=== PATIENT | male | born 1965 | race Caucasian/White ===

== ENCOUNTER 2021-09-10 10:51 | Emergency (ER) | payer BC, OTHER ==
[2021-09-10] MEDS ORDERED: TORAdol 30 mg Injection IM ONE (11:23)
[2021-09-10] MEDS ORDERED: Norflex 60 MG/2 ML IM ONE (11:24)
[2021-09-10] MEDS ORDERED: TORAdol 30 mg Injection ONE ×2 (11:27→11:31)
[2021-09-10] MEDS ORDERED: Norflex 60 MG/2 ML ONE (11:27)
--- NOTE | 2021-09-10 11:32 | ERPHSYRPT ---
- History of Present Illness Source: patient Patient Subjective Stated Complaint: PT states "my back started hurting a week before last but it is getting worse and worse. Now my whole right leg is numb." Triage Nursing Assessment: Pt presented alert and oriented X3, skin pwd Pt ambulates with a limp. pt unable to sit still, guards his right side. Physician History: 55 yo wm w R paraspinous pain w radiation down his R leg x 2 weeks. Pain is sharp and 10 on scale. It is worse w movement. He denies dysuria/hematuria/incontinence/paralysis/fever. Pt has not seen his PCP. Timing/Duration: other (2wks) Method of Injury: other (No injury) Quality: sharp Back Pain Location: paraspinous muscles Back Pain Radiation: buttocks, lower legs Severity of Pain-Max: severe Severity of Pain-Current: severe Modifying Factors: Improves With: movement Associated Symptoms: numbness in legs/feet, lower back pain, No fever, No chills, No sweating, No urinary incontinence, No loss of bowel control, No constipation, No nausea, No vomiting, No problems urinating, No light- headedness, No dizziness, No weakness, No sensory/motor loss, No tingling in legs/feet, No muscle spasms Previous symptoms: no prior history Allergies/Adverse Reactions: No Known Drug Allergies Allergy (Verified 09/10/21 11:26) Hx Tetanus, Diphtheria Vaccination/Date Given: Yes Hx Influenza Vaccination/Date Given: Yes Hx Pneumococcal Vaccination/Date Given: No Immunizations Up to Date: Yes Travel Risk - International Travel Have you traveled outside of the country in past 3 weeks: No - Coronavirus Screening Are you exhibiting any of the following symptoms?: No Close contact with a COVID-19 positive Pt in past 14-21 Days: No - Vaccine Status Have you recieved a Covid-19 vaccination: No - Review of Systems Constitutional: No Symptoms Eyes: No Symptoms Ears, Nose, & Throat: No Symptoms Respiratory: No Symptoms Cardiac: No Symptoms Abdominal/Gastrointestinal: No Symptoms Genitourinary Symptoms: No Symptoms Musculoskeletal: No Symptoms, Back Pain Skin: No Symptoms Neurological: No Symptoms, Sensory Changes (Mild decrease in sensation RLE) Psychological: No Symptoms Endocrine: No Symptoms Hematologic/Lymphatic: No Symptoms Immunological/Allergic: No Symptoms - Past Medical History Pertinent Past Medical History: No - Past Surgical History Past Surgical History: Yes Other Surgical History: knee-left. brooke. hemmrhoid - Social History Smoking Status: Never smoker Exposure to second hand smoke: Yes Drug Use: none Patient Lives Alone: No Significant Family History: no pertinent family hx - Nursing Vital Signs Nursing Vital Signs: Initial Vital Signs Temperature 97.0 F 09/10/21 11:13 Pulse Rate 80 09/10/21 11:13 Respiratory Rate 20 09/10/21 11:13 Blood Pressure 144/90 09/10/21 11:13 O2 Sat by Pulse Oximetry 99 09/10/21 11:13 Pain Scale Pain Intensity [] 10 Pain Intensity 4 Hypertensive - Physical Exam General Appearance: no apparent distress Eye Exam: PERRL/EOMI, eyes nml inspection Ears, Nose, Throat Exam: normal ENT inspection, TMs normal, pharynx normal, moist mucous membranes Neck Exam: normal inspection, non-tender, supple, full range of motion, No meningismus, No mass, No Brudzinski, No Kernig's, No carotid bruit Respiratory Exam: normal breath sounds, lungs clear, airway intact Cardiovascular Exam: regular rate/rhythm, normal heart sounds, normal peripheral pulses, No murmur Gastrointestinal Exam: soft, normal bowel sounds, No tenderness Back Exam: CVA tenderness (TTP R paraspinous musculature/Pain w stiff leg raises on R/Good distal capillary return and sensation), vertebral tenderness (Mild L- spine TTP) Extremity Exam: normal inspection, normal range of motion, pelvis stable Peripheral Pulses: carotid (R): 2+, carotid (L): 2+ Neurologic Exam: alert, oriented x 3, cooperative, 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, normal mood/affect, nml cerebellar function, nml station & gait, sensation nml, No motor deficits, No sensory deficit, No disoriented Skin Exam: normal color, warm, dry, No rash Lymphatic Exam: No adenopathy SpO2 Interpretation: normal SpO2: 99 O2 Delivery: Room Air - Course Nursing assessment & vital signs reviewed: Yes - CT Exams Abdomen/Pelvis CT Interpretation: Discussed w/radiologist (Fecal stasis/DDD/B LL Nodules) Ordered Tests: Active Orders 24 hr Category Date Time Status ABDOMEN AND PELVIS W/0 CONTRAS [CT] Stat Exams 09/10/21 12:00 Completed UA W/RFX UR CULTURE Stat Lab 09/10/21 12:28 Completed Medication Summary Discontinued Medications Generic Name Dose Route Start Last Admin Trade Name Deanna PRN Reason Stop Dose Admin Ketorolac Tromethamine 60 mg 09/10/21 11:23 09/10/21 11:29 Ketorolac Tromethamine 30 Mg/Ml Inj IM 09/10/21 11:24 60 mg STAT ONE Administration Ketorolac Tromethamine Confirm 09/10/21 11:27 Ketorolac Tromethamine 30 Mg/Ml Inj Administered 09/10/21 11:28 Dose 30 mg .ROUTE .STK-MED ONE Ketorolac Tromethamine Confirm 09/10/21 11:31 Ketorolac Tromethamine 30 Mg/Ml Inj Administered 09/10/21 11:32 Dose 30 mg .ROUTE .STK-MED ONE Orphenadrine Citrate 60 mg 09/10/21 11:24 09/10/21 11:29 Orphenadrine Citrate 60 Mg/2 Ml Amp IM 09/10/21 11:25 60 mg STAT ONE Administration Orphenadrine Citrate Confirm 09/10/21 11:27 Orphenadrine Citrate 60 Mg/2 Ml Amp Administered 09/10/21 11:28 Dose 60 mg .ROUTE .STK-MED ONE Lab/Rad Data: Laboratory Results 09/10/21 Range/Units 12:28 Urine Color YELLOW (YELLOW) Urine Appearance CLEAR (CLEAR) Urine pH 6.0 (5-6) Ur Specific Donaldson 1.014 (1.005-1.025) Urine Protein NEGATIVE (Negative) Urine Ketones NEGATIVE (NEGATIVE) Urine Blood NEGATIVE (0-5) Boyd/ul Urine Nitrite NEGATIVE (NEGATIVE) Urine Bilirubin NEGATIVE (NEGATIVE) Urine Urobilinogen NEGATIVE (0-1) mg/dL Ur Leukocyte Esterase NEGATIVE (NEGATIVE) Urine WBC (Auto) NONE (0-5) /HPF Urine RBC (Auto) NONE (0-2) /HPF U Epithel Cells (Auto) NONE (FEW) /HPF Urine Bacteria (Auto) NONE (NEGATIVE) /HPF Urine Culture Reflexed NO (NO) Urine Glucose NEGATIVE (NEGATIVE) mg/dL - Progress Progress Note: 09/10/21 11:35 60mg IM Toradol/60mg IM Norflex 09/10/21 13:04 Pain greatly improved after toradol-Norflex 09/10/21 13:[address] results reviewed w pt Counseled pt/family regarding: diagnosis, need for follow-up - Departure Departure Disposition: Home Clinical Impression: Sciatica Condition: Stable Critical Care Time: No Referrals: DOCTOR,NO FAMILY [Primary Care Provider] - Follow up/PCP as directed Instructions: Low Back Pain (DC), Sciatica (DC) Additional Instructions: Rest/Heat/Massage No lifting over 15 pounds for 1 week Follow up with your family MD Forms: Work/School Release Form Prescriptions: Dexamethasone 4 mg [Decadron 4 MG] 4 mg PO DAILY #5 tablet Etodolac 400 mg [Lodine 400 mg] 400 mg PO BID PRN #14 tablet PRN Reason: Pain Orphenadrine Citrate 100 mg [Norflex 100 MG Tablet] 100 mg PO BID PRN #10 tab PRN Reason: Pain
[2021-09-10 12:26] LABS: Appearance CLEAR (CLEAR); Bilirubin NEGATIVE (NEGATIVE); Blood NEGATIVE Ery/ul (0-5); Glucose NEGATIVE (NEGATIVE); Ketones NEGATIVE (NEGATIVE); Leukocyte Esterase NEGATIVE (NEGATIVE); Nitrite NEGATIVE (NEGATIVE); Protein,Urine Dip NEGATIVE (Negative); Specific Gravity 1.014 (1.005-1.025); Urobilinogen NEGATIVE mg/dL (0-1)
--- NOTE | 2021-09-10 12:37 | XRAY ---
Indication: Right back pain radiating right leg to explain no known injury. Multiple contiguous axial images obtained through the abdomen and pelvis without contrast. Comparison: None Lung bases demonstrates a 5 x 9 mm left lower lobe and 5 mm round right lower lobe noncalcified nodules. No infiltrate or effusion. Heart is not enlarged. Stomach is distended with food/fluid. Noncontrasted stomach and bowel loops nonobstructed with normal appendix. Mild diffuse scattered colonic fecal debris throughout. Previous cholecystectomy. No free fluid/air. Remaining liver, pancreas, spleen, adrenal glands, kidneys, ureters, and bladder are unremarkable for noncontrast exam. Very minimal aortic calcifications without AAA. Osseous structures intact with minimal/mild degenerative spondylosis throughout thoracolumbar spine with minimal 2 mm L4 spondylolisthesis, and minimal broad-based L3-S1 disc bulge. Impression: 1. Mild diffuse fecal stasis and chronic bony findings. 2. Tiny indeterminate bilateral lower lobe noncalcified nodules, too small for PET/CT. Outside comparison studies recommended if available. If not, CT chest recommended with follow-up per Fleischner guidelines. 3. Remaining CT abdomen/pelvis without contrast exam is negative.
[2021-09-10 12:44] VITALS: O2SAT 99
[2021-09-10 13:06] VITALS: BP 123/68; PULSE 62
== END 2021-09-10 13:05 | disposition home or self-care (01) ==
LOC: ED 10:51
DX: M54.31 Sciatica, right side (principal); Z79.52 Long term (current) use of systemic steroids
CPT/HCPCS: 74176; 81001; 96372; 99284; J1885; J2360